=== PATIENT | female | born 1995 | race Caucasian/White ===

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

== ENCOUNTER 2017-02-06 17:10 | Emergency (ER) | payer SELFPAY ==
--- NOTE | 2017-02-06 20:04 | ED NURSING NOTES ---
Clinical Report - Nurses [facility] [address] [place] [address] 02/06/2017 17:10 Patient: ELA JOEL TRIAGE Triage time 17:32. Acuity: LEVEL 3. Chief Complaint: ABDOMINAL CRAMPS and SPOTTING. Alert. No acute distress. LEISA COMA SCORE: [place] Coma Scale: 15- eyes open spontaneously (4); best verbal response- oriented x 4 (5); best motor response- obeys commands (6). --17:41 Wanda Rodriguez R.N. 17:34 02/06/17. BP: 132/79. HR: 88. RR: 18. O2 saturation: 100% on room air. Temp: 98.2 F (oral). Pain level now: 01/01. --17:41 Wanda Rodriguez R.N. Weight: 58.9 kg stated. Height/Length: 67 inches Per Patient. BMI: 20.4. Growth Chart Percentile: Weight: 55.2%. Height/Length: 85.4%. --17:37 Wanda Rodriguez R.N. Medications None. --17:35 Wanda Rodriguez R.N. Medication/allergy information source: the patient. --17:41 Wanda Rodriguez R.N. Allergies Amoxicillin. Doxycycline. --17:35 Wanda Rodriguez R.N. History Arrived by private vehicle. Historian: patient. Accompanied by friend. Primary physician (none). Onset. (about 3 days ago). PAST MEDICAL HX: Last normal menstrual period- November. 2. Para 1. SOCIAL HX: Heavy tobacco smoker- less than 1 pack per day. Occasional alcohol use. No drug use. FALL RISK ASSESSMENT: Fall risk assessment completed. No fall risk identified. FUNCTIONAL ASSESSMENT: Functional assessment: no impairments noted. LEARNING NEEDS ASSESSMENT: The learning needs assessment revealed no barriers. --17:41 Wanda Rodriguez R.N. PROBLEMS: Sprain. Knee Injury. Puncture Wound. . Tibia Fracture. --17:35 Wanda Rodriguez R.N. ADDITIONAL SURGERIES: no known surgeries. Assessment GENERAL / NEURO / PSYCH: Alert. Oriented X 4. Appears in no acute distress. Patient appears calm and cooperative. RESPIRATORY: Respirations not labored. SKIN: Skin is warm and dry. --17:41 Wanda Rodriguez R.N. Interventions ID and allergy band on patient. To treatment room. --17:41 Wanda Rodriguez R.N. PHYSICAL ASSESSMENT 17:53 02/06/17. Ambulatory to room. Patient gowned. GENERAL / NEURO / PSYCH: Alert. Oriented X 4. Appears in no acute distress. RESPIRATORY: Respirations not labored. SKIN: Skin is warm and dry. --17:53 Wanda Rodriguez R.N. NURSING PROGRESS NOTES 17:32 pt to BR. --17:32 Wanda Rodriguez R.N. 17:53 02/06/17. Patient gowned. Head of bed elevated. Call light placed in reach. Side rails up x 1. Bed placed in lowest position. Brakes of bed on. --17:53 Wanda Rodriguez R.N. :patient confirmed. Clean catch urine collected; sample sent to lab. Specimen labeled in the presence of the patient. --18:23 Wanda Rodriguez R.N. 18:37 02/06/17. PELVIC EXAM: Pelvic exam performed by HOOK AND EYE SEWING MACHINE OPERATOR. Assisted by one nurse. Preparation: pelvic tray; patient placed in lithotomy position. Procedure: speculum and bimanual exam. Status post-procedure: she was stable. Total time of assist / procedure: 15 minutes. --18:37 Wanda Rodriguez R.N. 19:16. Care transferred and report received. --19:16 Baltazar Monroy R.N. Patient ID band checked for patient name, birthdate and medical record number: patient confirmed. Blood samples drawn from the right antecubital space peripheral IV site by nurse per protocol ; labeled in presence of the patient and sent to lab: rainbow set. Reassurance given. The patient is calm. ( Pt states " I am super hungry we are starving her and have been here for the past 3 1/2 hours" Offered pt a sandwich and explanation of why it has taken long, explanation given as to us being an ER and not an express clinic, explanation and educated about process of her complaints. Significant other came with sandwich in hand, pt decided to stay and wait. Comfort provided). GENERAL / NEURO / PSYCH: The patient reports anxiety. Patient identifiers checked. Call light placed in reach. Side rails up. --19:35 Callie Moies R.N. 19:26 02/06/17. BP: 124/54. HR: 78. RR: 16. O2 saturation: 100% on room air. Temp: 98.3 F (oral). Pain level now: 12/01. --19:35 Callie Moise R.N. DISPOSITION / DISCHARGE Departure time: 20:00. The patient left the Emergency Department without completion of treatment. The patient appears to be alert, oriented x4, coherent and in no acute distress. Gown found on bed. ( Saw patient's male friend quickly walking from room and out of ED, when I got to the room - found gown on bed, went to lobby and saw patient and male vat skimmer walking to car in the parking lot.). The patient eloped. --20:03 Baltazar Monroy R.N. Locked/Released at 02/06/2017 20:05 by Baltazar Monroy R.N.
--- NOTE | 2017-02-06 20:04 | ED NURSING NOTES ---
Clinical Report - Nurses [facility] [address] [place] [address] 02/06/2017 17:10 Patient: ELA JOEL TRIAGE Triage time 17:32. Acuity: LEVEL 3. Chief Complaint: ABDOMINAL CRAMPS and SPOTTING. Alert. No acute distress. LEISA COMA SCORE: [place] Coma Scale: 15- eyes open spontaneously (4); best verbal response- oriented x 4 (5); best motor response- obeys commands (6). --17:41 Wanda Rodriguez R.N. 17:34 02/06/17. BP: 132/79. HR: 88. RR: 18. O2 saturation: 100% on room air. Temp: 98.2 F (oral). Pain level now: 01/01. --17:41 Wanda Rodriguez R.N. Weight: 58.9 kg stated. Height/Length: 67 inches Per Patient. BMI: 20.4. Growth Chart Percentile: Weight: 55.2%. Height/Length: 85.4%. --17:37 Wanda Rodriguez R.N. Medications None. --17:35 Wanda Rodriguez R.N. Medication/allergy information source: the patient. --17:41 Wanda Rodriguez R.N. Allergies Amoxicillin. Doxycycline. --17:35 Wanda Rodriguez R.N. History Arrived by private vehicle. Historian: patient. Accompanied by friend. Primary physician (none). Onset. (about 3 days ago). PAST MEDICAL HX: Last normal menstrual period- November. 2. Para 1. SOCIAL HX: Heavy tobacco smoker- less than 1 pack per day. Occasional alcohol use. No drug use. FALL RISK ASSESSMENT: Fall risk assessment completed. No fall risk identified. FUNCTIONAL ASSESSMENT: Functional assessment: no impairments noted. LEARNING NEEDS ASSESSMENT: The learning needs assessment revealed no barriers. --17:41 Wanda Rodriguez R.N. PROBLEMS: Sprain. Knee Injury. Puncture Wound. . Tibia Fracture. --17:35 Wanda Rodriguez R.N. ADDITIONAL SURGERIES: no known surgeries. Assessment GENERAL / NEURO / PSYCH: Alert. Oriented X 4. Appears in no acute distress. Patient appears calm and cooperative. RESPIRATORY: Respirations not labored. SKIN: Skin is warm and dry. --17:41 Wanda Rodriguez R.N. Interventions ID and allergy band on patient. To treatment room. --17:41 Wanda Rodriguez R.N. PHYSICAL ASSESSMENT 17:53 02/06/17. Ambulatory to room. Patient gowned. GENERAL / NEURO / PSYCH: Alert. Oriented X 4. Appears in no acute distress. RESPIRATORY: Respirations not labored. SKIN: Skin is warm and dry. --17:53 Wanda Rodriguez R.N. NURSING PROGRESS NOTES 17:32 pt to BR. --17:32 Wanda Rodriguez R.N. 17:53 02/06/17. Patient gowned. Head of bed elevated. Call light placed in reach. Side rails up x 1. Bed placed in lowest position. Brakes of bed on. --17:53 Wanda Rodriguez R.N. :patient confirmed. Clean catch urine collected; sample sent to lab. Specimen labeled in the presence of the patient. --18:23 Wanda Rodriguez R.N. 18:37 02/06/17. PELVIC EXAM: Pelvic exam performed by CLAIMS SUPERVISOR. Assisted by one nurse. Preparation: pelvic tray; patient placed in lithotomy position. Procedure: speculum and bimanual exam. Status post-procedure: she was stable. Total time of assist / procedure: 15 minutes. --18:37 Wanda Rodriguez R.N. 19:16. Care transferred and report received. --19:16 Baltazar Monroy R.N. Patient ID band checked for patient name, birthdate and medical record number: patient confirmed. Blood samples drawn from the right antecubital space peripheral IV site by nurse per protocol ; labeled in presence of the patient and sent to lab: rainbow set. Reassurance given. The patient is calm. ( Pt states " I am super hungry we are starving her and have been here for the past 3 1/2 hours" Offered pt a sandwich and explanation of why it has taken long, explanation given as to us being an ER and not an express clinic, explanation and educated about process of her complaints. Significant other came with sandwich in hand, pt decided to stay and wait. Comfort provided). GENERAL / NEURO / PSYCH: The patient reports anxiety. Patient identifiers checked. Call light placed in reach. Side rails up. --19:35 Callie Moise R.N. 19:26 02/06/17. BP: 124/54. HR: 78. RR: 16. O2 saturation: 100% on room air. Temp: 98.3 F (oral). Pain level now: 12/01. --19:35 Callie Moise R.N. DISPOSITION / DISCHARGE Departure time: 20:00. The patient left the Emergency Department without completion of treatment. The patient appears to be alert, oriented x4, coherent and in no acute distress. Gown found on bed. ( Saw patient's male friend quickly walking from room and out of ED, when I got to the room - found gown on bed, went to lobby and saw patient and male deck lid fitter walking to car in the parking lot.). The patient eloped. --20:03 Baltazar Monroy R.N. Locked/Released at 02/06/2017 20:05 by Baltazar Monroy R.N.
--- NOTE | 2017-02-06 20:04 | ED CLINICAL REPORT ---
Clinical Report - Physicians/Mid Levels [facility] [address] [place] [address] 02/06/2017 17:10 Patient: ELA JOEL Time Seen: 17:31; initial patient contact, initial documentation, patient care assumed. Arrived- By private vehicle. Historian- patient. HISTORY OF PRESENT ILLNESS Chief Complaint: VAGINAL BLEEDING. This started about 3 days ago and still present. The symptoms are described as mild. Modifying factors. Not worsened by anything. Not relieved by anything. The patient has had mild, crampy right-sided, suprapubic and left-sided pelvic pain, described as "pain", with vaginal bleeding. She has had abnormal bleeding described as spotting. No vaginal discharge, vaginal itching, pain with urination, urgency of urination or hematuria. The patient has had urinary frequency. Sexually active- unprotected sex and heterosexual. No exposure to sexually transmitted disease. Does not use control measures. Currently . In 1st trimester. confirmed with home test. Has had no care. G 3. P 2. Not receiving care. Similar symptoms previously: None. Recent medical care: Not recently seen/assessed. REVIEW OF SYSTEMS No vomiting, diarrhea, black stools, fever or difficulty breathing. No chest pain. All systems otherwise negative, except as recorded above. PAST HISTORY See nurses notes. ( PROBLEMS: Sprain. Knee Injury. Puncture Wound. . Tibia Fracture. --17:35 Wanda Rodriguez R.N. ADDITIONAL SURGERIES: no known surgeries.). SOCIAL HISTORY Light tobacco smoker. Occasional alcohol use. No drug use. No recent travel. Is a local resident. FAMILY HISTORY Negative. ADDITIONAL NOTES The nursing notes have been reviewed with agreement regarding the chief complaint, HPI, ROS, PMH and patient medications and allergies. PHYSICAL EXAM Vital Signs: 02/06/2017 17:34 BP: 132/79. HR: 88. RR: 18. O2 saturation: 100%. Temp: 98.2 F. Pain level now: 4/10. Have been reviewed as normal and appear to be correct. Appearance: Alert. Oriented X3. No acute distress. Anxious. HEENT: Normal external inspection. ENT: Pharynx normal. Neck: Neck supple. CVS: Heart sounds normal. Respiratory: No respiratory distress. Breath sounds normal. Chest nontender. Abdomen: Soft and nontender. Bowel sounds normal. No organomegaly. No mass. Back: Normal external inspection. : External inspection normal. Speculum exam normal. Bimanual exam normal. Skin: Skin warm and dry. Normal skin color. No rash. Normal skin turgor. Extremities: Extremities nontender. No lower extremity edema. Neuro: Oriented X 3. Mood/affect normal. No motor deficit. No sensory deficit. LABS, X-RAYS, AND EKG Laboratory Tests: UA-Culture if indicated: (SAE: 02/06/2017 17:40) ( [facility] 02/06/2017 19:23) Final results Test Result Flag Units (Reference) URINE COLOR STRAW URINE APPEARANCE CLEAR URINE GLUCOSE NEGATIVE (NEGATIVE) URINE BILIRUBIN NEGATIVE (NEGATIVE) URINE KETONE NEGATIVE (NEGATIVE) URINE SPECIFIC GRAVITY <= 1.005 L (1.010-1.030) URINE PH 7.0 (5.0-8.0) URINE PROTEIN NEGATIVE (NEGATIVE) URINE UROBILINOGEN 0.2 EU/dL (0.2-1.0) URINE NITRITE NEGATIVE (NEGATIVE) URINE BLOOD NEGATIVE (NEGATIVE) URINE LEUK ESTERASE NEGATIVE (NEGATIVE) URINE RBC NONE SEEN rbc/hpf (0-1) URINE WBC 0-1 wbc/hpf (0-1) URINE EPITHELIAL CELLS 1-3 EPI/hpf (0-5) URINE BACTERIA NONE SEEN (NONE SEEN) URINE COMMENT CULT NOT INDICATED URINE CULTURES ARE SET-UP BASED ON THE FOLLOWING CRITERIA:POSITIVE NITRITEPOSITIVE LEUKOCYTE ESTERASEGREATER THAN 10 WHITE BLOOD CELLSMODERATE (2+) OR GREATER BACTERIA Serum Qualitative: (SAE: 02/06/2017 19:00) ( [facility] 02/06/2017 19:43) Final results Test Result Flag Units (Reference) , SERUM POSITIVE CBC w Diff: (SAE: 02/06/2017 19:00) ( [facility] [place] 19:33[place] Final results Test Result Flag Units (Reference) WHITE BLOOD COUNT 10.6 K/uL (4.5-11.5) RED BLOOD COUNT 4.59 M/uL (4.00-5.20) HEMOGLOBIN 13.4 gm/dL (12.0-16.0) HEMATOCRIT 40.1 % (36.0-46.0) MEAN CELL VOLUME 87 fL (80-100) MEAN CORPUSCULAR HGB 29 pg (26-34) MEAN CORPUSCULAR HGB CONC 33 g/dL (31-37) RED CELL DISTRIBUTION WIDTH 15.2 H % (11.6-14.8) PLATELET COUNT 291 K/uL (150-400) NEUTROPHIL % 60.9 % (50-75) LYMPH % 29.1 % (25-40) MONO % 8.6 % (3-14) EOSINOPHIL % 1.0 % (0-4) BASOPHIL % 0.4 % (0-2) CMP: (SAE: 02/06/2017 19:00) ( [facility] 02/06/2017 19:53) Final results Test Result Flag Units (Reference) GLUCOSE 86 mg/dL (70-110) BUN 6 L mg/dL (7-18) CREATININE 0.6 mg/dL (0.6-1.3) Estimated GFR >60 mL/min Estimated GFR- >60 mL/min Note: Persistent reduction over 3 months in eGFR<60 mL/min/1.73 m2 defines CKD. Patients with eGFR values>=60 mL/min/1.73 m2 may also have CKD if evidence ofpersistent proteinuria. Additional information may be foundat www.kidney.org. SODIUM 139 mmol/L (136-145) POTASSIUM 3.4 L mmol/L (3.5-5.1) CHLORIDE 103 mmol/L (98-107) CARBON DIOXIDE 26 mmol/L (21-32) CALCIUM 8.9 mg/dL (8.5-10.1) TOTAL PROTEIN 7.5 g/dL (6.4-8.2) ALBUMIN 3.9 g/dL (3.3-5.0) BILIRUBIN, TOTAL 0.7 mg/dL (0.0-1.0) ALKALINE PHOSPHATASE 73 U/L (46-116) AST (SGOT) 16 U/L (15-37) ALT (SGPT) 28 U/L (12-78) . PROGRESS AND PROCEDURES Course of Care: pt aware that pelvic exam was normal, and test would be verified and then US 1940. nurse informing me that pt was telling her she wanted to go 19:58 02/06/17. OBDULIA Ledesma reporting pt left. 02/06/2017 19:26 BP: 124/54. HR: 78. RR: 16. O2 saturation: 100%. Temp: 98.3 F. Pain level now: 12/01. Vital Signs: have been reviewed as normal and appear to be correct. Differential Diagnosis: I considered vaginitis, vaginal polyps, vaginal cancer, vulvar infection, ovarian cysts, polycystic disease of the ovaries, pelvic inflammatory disease, endometriosis, uterine fibroids, intrauterine , ectopic , incomplete , threatened , endometritis and dysfunctional uterine bleeding as a possible cause of vaginal bleeding in this patient. This is a partial list of diagnoses considered. Above considerations are based on history, physical exam, reassessment, laboratory data and other information. Differential diagnosis was discussed with patient. CLINICAL IMPRESSION Mild dysfunctional uterine bleeding. No menorrhagia. (Electronically signed by Jes Luke A.R.N.P. 02/06/2017 22:13)
--- NOTE | 2017-02-06 20:04 | ED ORDER SUMMARY ---
..... Patient: ELA JOEL OrderSheet [facility] VisitID: [id number] [address] [place] [address] 21y, F Registration Date/Time: 02/06/2017 ORDER SHEET Weight: 58.9 kg (stated) Allergies: Amoxicillin, Doxycycline GENERAL ORDERS: Pelvic Exam Setup (17:40 02/06/2017 HBivens A.R.N.P.) (18:08 Rain R.N.) CBC w Diff Urgent (18:34 02/06/2017 HBivens A.R.N.P.) (Ack 18:45 KHoerner) (19:24 EHassan R.N.) CMP Urgent (18:34 02/06/2017 HBivens A.R.N.P.) (Ack 18:45 KHoerner) (19:24 EHassan R.N.) UA-Culture if indicated Urgent (18:34 02/06/2017 HBivens A.R.N.P.) (Ack 18:45 KHoerner) (19:19 Rain R.N.) Serum Qualitative Urgent (18:34 02/06/2017 HBivens A.R.N.P.) (Ack 18:45 KHoerner) (19:24 EHassan R.N.) MEDICATION ORDERS: IV FLUIDS: ORDER SHEET NOTES: [Electronically signed by Baltazar Monroy R.N. (20:05 02/06/2017)] [Electronically signed by Jes Luke.R.N.P. (22:13 02/06/2017)] [Electronically locked/signed by Baltazar Monroy R.N. (20:05 02/06/2017)]
--- NOTE | 2017-02-06 20:04 | ED ORDER SUMMARY ---
..... Patient: ELA JOEL OrderSheet [facility] VisitID: [id number] [address] [place] [address] 21y, F Registration Date/Time: 02/06/2017 ORDER SHEET Weight: 58.9 kg (stated) Allergies: Amoxicillin, Doxycycline GENERAL ORDERS: Pelvic Exam Setup (17:40 02/06/2017 HBivens A.R.N.P.) (18:08 Rain R.N.) CBC w Diff Urgent (18:34 02/06/2017 HBivens A.R.N.P.) (Ack 18:45 KHoerner) (19:24 EHassan R.N.) CMP Urgent (18:34 02/06/2017 HBivens A.R.N.P.) (Ack 18:45 KHoerner) (19:24 EHassan R.N.) UA-Culture if indicated Urgent (18:34 02/06/2017 HBivens A.R.N.P.) (Ack 18:45 KHoerner) (19:19 Rain R.N.) Serum Qualitative Urgent (18:34 02/06/2017 HBivens A.R.N.P.) (Ack 18:45 KHoerner) (19:24 EHassan R.N.) MEDICATION ORDERS: IV FLUIDS: ORDER SHEET NOTES: [Electronically signed by Baltazar Monroy R.N. (20:05 02/06/2017)] [Electronically signed by Jes Luke.R.N.P. (22:13 02/06/2017)] [Electronically locked/signed by Baltazar Monroy R.N. (20:05 02/06/2017)]
--- NOTE | 2017-02-06 22:13 | ED MAR SUMMARY ---
..... Medication Administration Record [facility] [address], [place] [id number] Patient: ELA JOEL Visit ID: [id number] 21y, F Weight: 58.9 kg Height/Length: 67 in BMI: 20.4 ALLERGIES: Amoxicillin, Doxycycline
--- NOTE | 2017-02-06 22:13 | ED MED RECONCILIATION SUMMARY ---
Patient: ELA JOEL Medication Reconciliation Report [facility] VisitID: [id number] [address] [place] [address] 21y, F Registration Date/Time: 02/06/2017 Weight: 58.9 kg Height/Length: 67 in. BMI: 20.4 ALLERGIES: Amoxicillin, Doxycycline The patient's Home Medications are listed below: NONE. The source(s) of the original Home Medication information: patient The following Medications were given to the patient in the Emergency Department: None. The following Medications were prescribed to the patient: None.
--- NOTE | 2017-02-06 22:13 | ED DISCHARGE INSTRUCTIONS ---
Patient: ELA JOEL General Instructions [facility] VisitID: [id number] [address] [place] [address] 21y, F Registration Date/Time: 02/06/2017 Mild dysfunctional uterine bleeding. No menorrhagia. (Electronically signed by Jes Luke A.R.N.P. 02/06/2017 22:13)
--- NOTE | 2017-02-06 22:13 | ED MAR SUMMARY ---
..... Medication Administration Record [facility] [address] [place], [place] [id number] Patient: ELA JOEL Visit ID: [id number] 21y, F Weight: 58.9 kg Height/Length: 67 in BMI: 20.4 ALLERGIES: Amoxicillin, Doxycycline
--- NOTE | 2017-02-06 22:13 | ED MED RECONCILIATION SUMMARY ---
Patient: ELA JOEL Medication Reconciliation Report [facility] VisitID: [id number] [address] [place] [address] 21y, F Registration Date/Time: 02/06/2017 Weight: 58.9 kg Height/Length: 67 in. BMI: 20.4 ALLERGIES: Amoxicillin, Doxycycline The patient's Home Medications are listed below: NONE. The source(s) of the original Home Medication information: patient The following Medications were given to the patient in the Emergency Department: None. The following Medications were prescribed to the patient: None.
--- NOTE | 2017-02-06 22:13 | ED DISCHARGE INSTRUCTIONS ---
Patient: ELA JOEL General Instructions [facility] VisitID: [id number] [address] [place] [address] 21y, F Registration Date/Time: 02/06/2017 Mild dysfunctional uterine bleeding. No menorrhagia. (Electronically signed by Jes Luke A.R.N.P. 02/06/2017 22:13)
== END 2017-02-06 20:00 | disposition home or self-care (01) ==
LOC: ED SRH 17:10
DX: O20.9 Hemorrhage in early pregnancy, unspecified (principal); Z3A.08 8 weeks gestation of pregnancy; F17.290 Nicotine dependence, other tobacco product, uncomplicated; Z88.1 Allergy status to other antibiotic agents
CPT/HCPCS: 90004; 90100; 95059; 98428